=== PATIENT | male | born 1955 | race Caucasian/White ===

== ENCOUNTER 2019-07-24 14:08 | Day surgery (SDC) | payer MEDICARE, BC ==
[~2019-07-24] VITALS: Ht 185.4 cm; Wt 116.9 kg
[2019-07-24] VITALS (7 sets, daily range): BP systolic 113–128; BP diastolic 52–75
[2019-07-24] MEDS ORDERED: normal saline 1000ml 1,000 ML IV SCH (14:25)
[2019-07-24] MEDS ORDERED: cefazolin/dext.iso 2gm/50ml 50 ML IV ONE (14:30)
[2019-07-24] MEDS ORDERED: SACU1TAB PO (14:57)
[2019-07-24] MEDS ORDERED: APIX5TAB3 PO (14:57)
[2019-07-24 15:00] LABS: BASOPHILS # (AUTO) 0.1 X10'3 (0-0.2); EOSINOPHILS # (AUTO) 0.2 X10'3 (0-0.9); EOSINOPHILS % (AUTO) 3.1 % (0-6); HEMATOCRIT 40.5 % (42.0-52.0); LYMPHOCYTES # (AUTO) 1.5 X10'3 (1.1-4.8); MEAN CORPUSCULAR HEMOGLOBIN 33.5 PG (27.0-31.0); MEAN CORPUSCULAR HGB CONC 34.5 g/dL (33.0-36.5); MEAN CORPUSCULAR VOLUME 97.1 FL (78-98); MEAN PLATELET VOLUME 7.7 FL (7.4-10.4); MONOCYTES # (AUTO) 0.6 X10'3 (0-0.9); MONOCYTES % (AUTO) 10.1 % (2-12); NEUTROPHILS # (AUTO) 3.4 X10'3 (1.8-7.7); NEUTROPHILS % (AUTO) 59.8 % (42-75); PLATELET COUNT 173 X10'3 (140-440); RED BLOOD COUNT 4.17 X10'6 (4.70-6.10); RED CELL DISTRIBUTION WIDTH 12.7 % (11.5-14.5); WHITE BLOOD COUNT 5.7 X10'3 (4.5-11.0)
[2019-07-24] MEDS ORDERED: CARV-50 PO (15:00)
[2019-07-24] MEDS ORDERED: HYDR-4353 PO (15:00)
[2019-07-24] MEDS ORDERED: LOVA20TA2 PO (15:00)
[2019-07-24] MEDS ORDERED: FURO-150 PO (15:00)
[2019-07-24] MEDS ORDERED: CELE-193 PO (15:00)
[2019-07-24 15:11] LABS: ALBUMIN 3.6 G/DL (3.4-5.0); ANION GAP 7 (8-16); BLOOD UREA NITROGEN 26 MG/DL (7-18); BUN/CREATININE RATIO 21.8 (5.4-32.0); CALCIUM 9.2 MG/DL (8.5-10.1); CHLORIDE 105 MMOL/L (99-107); CREATININE 1.19 MG/DL (0.60-1.10); GLUCOSE 97 MG/DL (70-104); POTASSIUM 5.2 MMOL/L (3.5-5.1); SODIUM 138 MMOL/L (135-145); TOTAL CARBON DIOXIDE 25.6 MMOL/L (24-32); eGFR 61 ML/MIN
[2019-07-24 16:01] LABS: CLARITY,URINE CLEAR (Clear); COLOR,URINE YELLOW (Yellow); GLUCOSE, URINE NEGATIVE (Neg); KETONES,URINE NEGATIVE (Neg); LEUKOCYTE ESTERASE ,URINE NEGATIVE (Neg); NITRITES, URINE NEGATIVE (Neg); OCCULT BLOOD,URINE NEGATIVE (Neg); PROTEIN,URINE NEGATIVE (Neg); UROBILINOGEN,URINE 0.2 E.U/dL (0.2-1.0)
[2019-07-24 16:02] LABS: UA COLLECTION TYPE NON-SPECIFIED
[2019-07-24] MEDS ORDERED: ceFAZolin 1GM/D5W- ADD-VANTAGE 100 ML IV ONE (19:13)
[2019-07-24] MEDS ORDERED: midazolam 2 mg/2 ml injection ONE ×2 (19:13→19:40)
[2019-07-24] MEDS ORDERED: fentaNYL/PF 50MCG/1 ML 2ML syringe ONE (19:13)
[2019-07-24] MEDS ORDERED: LIDOcaine 1% W/epiNEPHrine 1:100,000 20ml vial ONE (19:14)
[2019-07-24] MEDS ORDERED: HYDROmorphone 1 mg/ml syringe ONE (20:03)
--- NOTE | 2019-07-24 20:30 | NUR ---
Patient arrived to the floor at 2030. Patient is alert and oriented. Vital signs are stable. Peripheral pulses intact. Dressing clean dry and intact with no drainage noted. Sling is in place to L arm.
[2019-07-24] MEDS ORDERED: HYDROcodone/acetaminophen 5mg/325mg tablet PO PRN (20:50)
[2019-07-24] MEDS ORDERED: HYDROcodone/acetaminophen 10/325mg tab PO PRN (20:50)
--- NOTE | 2019-07-24 22:23 | NUR ---
Pt discharged home at 2210 with spouse. Vital signs stable. Peripheral pulses palpable. Sling remains in place to L shoulder. Dressing is clean dry and intact with no drainage noted. Pt was able to ambulate to the bathroom and void before discharge. Pt states he has no pain at this time. Provided discharge and follow up instructions. IV removed, tip of cannula was intact.
== END 2019-07-24 22:10 | disposition home or self-care (01) ==
LOC: SSTAY O 14:08 → CANBEDREQ 23:27
PROVIDERS: ATTEND Internal Medicine Interventional Cardiology
DX: T82.120A Displacement of cardiac electrode, initial encounter (principal); G47.33 Obstructive sleep apnea (adult) (pediatric); I10 Essential (primary) hypertension; I48.91 Unspecified atrial fibrillation; E66.9 Obesity, unspecified; Z68.34 Body mass index [BMI] 34.0-34.9, adult; Z79.899 Other long term (current) drug therapy; Y83.8 Other surgical procedures as the cause of abnormal reaction of the patient, or of later complication, without mention of misadventure at the time of the procedure; Y92.89 Other specified places as the place of occurrence of the external cause
CPT/HCPCS: 33215; 36415; 80048; 81003; 83735; 85025; 85610; 93005; 99152; 99153; J0690; J1170; J2250; J3010; A4565; A4620; J7030